=== PATIENT | female | born 1980 | race African-American/Black ===

== ENCOUNTER 2020-08-16 13:36 | Observation (INO) ==
[2020-08-16 15:43] LABS: Basophils % 0.4 % (0.0-0.8); Eosinophils # 0.3 10*3/uL (0.0-0.87); Eosinophils % 2.6 % (0.00-10.9); Hematocrit 23.5 VOL% (35.7-47.0); Hemoglobin 7.3 GM/DL (12.0-16.0); Immature Granulocytes % 0.6 %; Immature Granulocytes Absolute 0.07 #; Lymphocytes # 1.7 10*3/uL (1.4-4.0); Lymphocytes % 15.8 % (21.3-54.2); Mean Corpuscular HGB Conc 31.1 GM/DL (32-36); Mean Corpuscular Volume 84.8 FL (87-102); Mean Platelet Volume 8.7 FL (9.6-12.0); Monocytes % 6.4 % (1.7-12.7); Neutrophils % 74.2 % (38.7-73.9); Platelet Count 302 T/CUMM (130-400); Red Blood Count 2.77 MC/CUMM (3.8-5.5); Red Cell Distribution Width 14.7 % (9.3-17.3)
[2020-08-16 16:07] LABS: Potassium 4.4 MMOL/L (3.5-5.1)
[2020-08-16] MEDS ORDERED: DOCUSATE SODIUM 100 MG CAPSULE PO PRN (16:57)
[2020-08-16] MEDS ORDERED: hydrALAZINE 20 MG/1 ML VIAL IV PRN (16:57)
[2020-08-16] MEDS ORDERED: ACETAMINOPHEN 325 MG TABLET PO PRN (16:57)
[2020-08-16] MEDS ORDERED: ONDANSETRON 4 MG/2 ML VIAL IV PRN (16:57)
[2020-08-16] MEDS ORDERED: DEXTROSE 50% 25 GM/50 ML VIAL IV PRN (16:57)
[2020-08-16] MEDS ORDERED: GLUCAGON 1 MG VIAL IM PRN (16:57)
[2020-08-16] MEDS ORDERED: SODIUM CHLORIDE 0.9% 1,000 ML IV PRN ×2 (17:02→20:33)
[2020-08-16] MEDS ORDERED: ALBUTEROL 2.5 MG/3 ML NEB RESP TX PRN (17:07)
[2020-08-16 17:29] LABS: Basophils % 0.3 % (0.0-0.8); Eosinophils # 0.3 10*3/uL (0.0-0.87); Eosinophils % 2.8 % (0.00-10.9); Hematocrit 22.2 VOL% (35.7-47.0); Immature Granulocytes % 0.7 %; Immature Granulocytes Absolute 0.07 #; Lymphocytes # 1.7 10*3/uL (1.4-4.0); Lymphocytes % 16.8 % (21.3-54.2); Mean Corpuscular HGB Conc 31.5 GM/DL (32-36); Mean Corpuscular Volume 85.1 FL (87-102); Mean Platelet Volume 8.8 FL (9.6-12.0); Monocytes % 6.7 % (1.7-12.7); Neutrophils % 72.7 % (38.7-73.9); Platelet Count 284 T/CUMM (130-400); Red Blood Count 2.61 MC/CUMM (3.8-5.5); Red Cell Distribution Width 14.9 % (9.3-17.3)
[2020-08-16 17:31] LABS: % Iron Saturation 9.5 % (18-50); Ferritin 102.5 ng/ml (8-252)
[2020-08-16 18:05] LABS: Folate 11.02 NG/ML (5.38-24.0); Vitamin B12 564 PG/ML (211-911)
[2020-08-16] MEDS: FERROUS SULFATE 325 MG TABLET PO SCH (20:53)
[2020-08-16] MEDS: ATORVASTATIN 80 MG TABLET PO SCH (20:53)
[2020-08-16] MEDS: SODIUM CHLORIDE 0.9% 1,000 ML IV SCH (20:53)
[2020-08-16] MEDS: LORYNA PO SCH (20:54)
[2020-08-16] MEDS: BUDESONIDE/FORMOTEROL 160-4.5 INHALER 6 GM INH SCH (20:54)
[2020-08-16] MEDS: MONTELUKAST 10 MG TABLET PO SCH (20:54)
[2020-08-16 21:48] LABS: Sedimentation Rate-Westergren 132 MM/HR (0-20)
[2020-08-17 05:36] LABS: Basophils % 0.4 % (0.0-0.8); Eosinophils # 0.3 10*3/uL (0.0-0.87); Eosinophils % 3.5 % (0.00-10.9); Hematocrit 26.2 VOL% (35.7-47.0); Immature Granulocytes % 0.7 %; Immature Granulocytes Absolute 0.06 #; Lymphocytes # 1.5 10*3/uL (1.4-4.0); Lymphocytes % 18.3 % (21.3-54.2); Mean Corpuscular HGB Conc 32.8 GM/DL (32-36); Mean Corpuscular Volume 84.2 FL (87-102); Mean Platelet Volume 8.8 FL (9.6-12.0); Neutrophils % 69.1 % (38.7-73.9); Platelet Count 247 T/CUMM (130-400); Red Blood Count 3.11 MC/CUMM (3.8-5.5); Red Cell Distribution Width 14.7 % (9.3-17.3); White Blood Count 8.3 T/CUMM (4-12)
[2020-08-17 05:47] LABS: Hemoglobin 8.6 GM/DL (12.0-16.0)
[2020-08-17 06:14] LABS: Calcium 9.9 MG/DL (8.5-10.1); Potassium 4.2 MMOL/L (3.5-5.1); Risk Ratio 3.35; Thyroid Stimulating Hormone 2.67 uIU/ml (0.358-3.74); VLDL CHOLESTEROL 55.4 MG/DL
[2020-08-17] MEDS ORDERED: INSULIN LISPRO 100 UNIT/ML SUBCUT SCH ×2 (08:00→12:00)
[2020-08-17] MEDS: INSULIN LISPRO 100 UNIT/ML SUBCUT SCH ×3 (09:37→17:14)
[2020-08-17] MEDS: INSULIN GLARGINE 100 UNIT/ML SUBCUT SCH (09:38)
[2020-08-17] MEDS: CITALOPRAM 20 MG TABLET PO SCH (09:38)
[2020-08-17] MEDS: FERROUS SULFATE 325 MG TABLET PO SCH ×2 (09:38→21:43)
[2020-08-17] MEDS: PANTOPRAZOLE 40 MG TABLET PO SCH (09:38)
[2020-08-17] MEDS: BUDESONIDE/FORMOTEROL 160-4.5 INHALER 6 GM INH SCH ×2 (09:41→21:42)
[2020-08-17 12:09] LABS: Hematocrit 28.5 VOL% (35.7-47.0)
[2020-08-17] MEDS: SODIUM CHLORIDE 0.9% 1,000 ML IV SCH (17:20)
[2020-08-17] MEDS: ATORVASTATIN 80 MG TABLET PO SCH (21:43)
[2020-08-17] MEDS: MONTELUKAST 10 MG TABLET PO SCH (21:43)
[2020-08-17] MEDS: LORYNA PO SCH (21:44)
[2020-08-18 05:46] LABS: Basophils % 0.4 % (0.0-0.8); Eosinophils # 0.4 10*3/uL (0.0-0.87); Hematocrit 27.5 VOL% (35.7-47.0); Hemoglobin 8.6 GM/DL (12.0-16.0); Immature Granulocytes % 1.1 %; Lymphocytes # 1.9 10*3/uL (1.4-4.0); Lymphocytes % 19.5 % (21.3-54.2); Mean Corpuscular HGB Conc 31.3 GM/DL (32-36); Mean Corpuscular Volume 86.2 FL (87-102); Monocytes % 8.4 % (1.7-12.7); Neutrophils % 66.6 % (38.7-73.9); Platelet Count 247 T/CUMM (130-400); Red Blood Count 3.19 MC/CUMM (3.8-5.5); Red Cell Distribution Width 14.6 % (9.3-17.3); White Blood Count 9.5 T/CUMM (4-12)
[2020-08-18] MEDS: INSULIN LISPRO 100 UNIT/ML SUBCUT SCH ×4 (07:55→17:58)
[2020-08-18] MEDS: INSULIN GLARGINE 100 UNIT/ML SUBCUT SCH (08:53)
[2020-08-18] MEDS: PANTOPRAZOLE 40 MG TABLET PO SCH (08:53)
[2020-08-18] MEDS: ASCORBIC ACID 500 MG TABLET PO SCH (08:53)
[2020-08-18] MEDS: CHOLECALCIFEROL 1,000 UNIT TABLET PO SCH (08:53)
[2020-08-18] MEDS: CITALOPRAM 20 MG TABLET PO SCH (08:54)
[2020-08-18] MEDS: FERROUS SULFATE 325 MG TABLET PO SCH ×2 (08:54→20:01)
[2020-08-18] MEDS: SODIUM CHLORIDE 0.9% 1,000 ML IV SCH ×3 (08:58→23:30)
[2020-08-18] MEDS: BUDESONIDE/FORMOTEROL 160-4.5 INHALER 6 GM INH SCH ×2 (12:15→20:02)
[2020-08-18 15:58] LABS: Bilirubin,Urine Negative (Negative); Blood, Urine Large mg/dL (Negative); Glucose,Urine (UA) >=500 mg/dL (Negative); Ketones,Urine Negative (Negative); Nitrite,Urine Negative (Negative); Protein,Urine 100 MG/DL; RBC,Urine 3779 /HPF (0-4); Squamous Epithelial Cell,Urine Occasional /HPF (0-10); Urine Appearance Slightly Hazy (Clear); Urine Color Red (Yellow); Urine Specific Gravity 1.008 (1.001-1.035); Urine Urobilinogen < 2.0 EU/DL (0.2-1.0)
[2020-08-18] MEDS: LORYNA PO SCH (20:00)
[2020-08-18] MEDS: MONTELUKAST 10 MG TABLET PO SCH (20:01)
[2020-08-18] MEDS: ATORVASTATIN 80 MG TABLET PO SCH (20:01)
[2020-08-19] MEDS: ASCORBIC ACID 500 MG TABLET PO SCH (08:37)
[2020-08-19] MEDS: PANTOPRAZOLE 40 MG TABLET PO SCH (08:37)
[2020-08-19] MEDS: FERROUS SULFATE 325 MG TABLET PO SCH ×2 (08:37→20:02)
[2020-08-19] MEDS: INSULIN LISPRO 100 UNIT/ML SUBCUT SCH ×3 (08:38→17:43)
[2020-08-19] MEDS: INSULIN GLARGINE 100 UNIT/ML SUBCUT SCH (08:38)
[2020-08-19] MEDS: CHOLECALCIFEROL 1,000 UNIT TABLET PO SCH (08:38)
[2020-08-19] MEDS: CITALOPRAM 20 MG TABLET PO SCH (08:41)
[2020-08-19] MEDS: BUDESONIDE/FORMOTEROL 160-4.5 INHALER 6 GM INH SCH ×2 (08:42→20:03)
[2020-08-19 08:46] LABS: Hemoglobin A1 (Alkaline) 97.5 % (96.5-98.5); Hemoglobin A2 (Alkaline) 2.5 % (1.5-3.5)
[2020-08-19] MEDS: SODIUM CHLORIDE 0.9% 1,000 ML IV SCH ×2 (10:46→23:10)
[2020-08-19 13:47] LABS: Basophils % 0.2 % (0.0-0.8); Eosinophils # 0.3 10*3/uL (0.0-0.87); Eosinophils % 3.5 % (0.00-10.9); Hematocrit 27.8 VOL% (35.7-47.0); Hemoglobin 8.8 GM/DL (12.0-16.0); Immature Granulocytes % 0.8 %; Immature Granulocytes Absolute 0.08 #; Lymphocytes # 1.4 10*3/uL (1.4-4.0); Lymphocytes % 14.3 % (21.3-54.2); Mean Corpuscular HGB Conc 31.7 GM/DL (32-36); Mean Corpuscular Volume 86.1 FL (87-102); Mean Platelet Volume 8.4 FL (9.6-12.0); Monocytes % 6.3 % (1.7-12.7); Neutrophils % 74.9 % (38.7-73.9); Platelet Count 280 T/CUMM (130-400); Red Blood Count 3.23 MC/CUMM (3.8-5.5); Red Cell Distribution Width 14.6 % (9.3-17.3); White Blood Count 9.5 T/CUMM (4-12)
[2020-08-19] MEDS: ATORVASTATIN 80 MG TABLET PO SCH (20:02)
[2020-08-19] MEDS: MONTELUKAST 10 MG TABLET PO SCH (20:02)
[2020-08-19] MEDS: LORYNA PO SCH (20:05)
[2020-08-20 05:32] LABS: Basophils % 0.5 % (0.0-0.8); Eosinophils # 0.4 10*3/uL (0.0-0.87); Eosinophils % 4.6 % (0.00-10.9); Hematocrit 26.3 VOL% (35.7-47.0); Hemoglobin 8.3 GM/DL (12.0-16.0); Immature Granulocytes % 0.8 %; Immature Granulocytes Absolute 0.07 #; Lymphocytes # 1.4 10*3/uL (1.4-4.0); Lymphocytes % 16.3 % (21.3-54.2); Mean Corpuscular HGB Conc 31.6 GM/DL (32-36); Mean Corpuscular Volume 85.4 FL (87-102); Mean Platelet Volume 8.4 FL (9.6-12.0); Neutrophils % 70.8 % (38.7-73.9); Platelet Count 238 T/CUMM (130-400); Red Blood Count 3.08 MC/CUMM (3.8-5.5); Red Cell Distribution Width 14.7 % (9.3-17.3); White Blood Count 8.9 T/CUMM (4-12)
[2020-08-20 05:46] LABS: Calcium 9.1 MG/DL (8.5-10.1); Osmolality,Calculated 289.7 MOS/KG (273-304); Potassium 4.2 MMOL/L (3.5-5.1)
[2020-08-20] MEDS ORDERED: medroxyPROGESTERone 5 MG TABLET PO SCH (09:00)
[2020-08-20] MEDS ORDERED: medroxyPROGESTERone 10 MG TABLET PO SCH (09:00)
[2020-08-20] MEDS: BUDESONIDE/FORMOTEROL 160-4.5 INHALER 6 GM INH SCH (09:05)
[2020-08-20] MEDS: INSULIN GLARGINE 100 UNIT/ML SUBCUT SCH (09:05)
[2020-08-20] MEDS: INSULIN LISPRO 100 UNIT/ML SUBCUT SCH ×2 (09:06→12:53)
[2020-08-20] MEDS: FERROUS SULFATE 325 MG TABLET PO SCH (09:07)
[2020-08-20] MEDS: CHOLECALCIFEROL 1,000 UNIT TABLET PO SCH (09:07)
[2020-08-20] MEDS: CITALOPRAM 20 MG TABLET PO SCH (09:07)
[2020-08-20] MEDS: ASCORBIC ACID 500 MG TABLET PO SCH (09:07)
[2020-08-20] MEDS: PANTOPRAZOLE 40 MG TABLET PO SCH (09:10)
[2020-08-20 12:09] VITALS: BP 136/63
== END 2020-08-20 16:15 | disposition home or self-care (01) ==
LOC: N.ED 13:36 → N.EDINP 13:36 → SUATTDRO 16:57 → N.4E 18:15
PROVIDERS: ADMIT Internal Medicine; ATTEND Internal Medicine